=== PATIENT | female | born 1970 | race Caucasian/White ===

== ENCOUNTER → 2017-03-11 | Outpatient (CLI) | payer MEDICARE, OTHER ==
[~2017-03-11] MED LIST: IOHEXOL 300 MG/ML 75 ML VIAL. IV ONE
--- NOTE | 2017-03-11 11:11 | RAD ---
CTA of the chest with contrast (pulmonary embolism protocol) 03/11/2017 Clinical History: Shortness of breath. COPD.. Technique: After the intravenous administration of 75 mL of Isovue-370, contiguous, 0.625 mm axial sections were obtained through the chest. 2 mm reconstructed axial and 3-D MIP coronal and sagittal reconstructed images were obtained. One or more of the following individualized dose reduction techniques were utilized for this study: 1. Automated exposure control. 2. Adjustment of the mA and/or kV according to patient size. 3. Use of iterative reconstruction technique. Findings: Comparison study is dated 04/08/2016. No filling defects are seen within the major branches of either pulmonary artery. The heart and thoracic aorta are within normal limits. Areas of scarring are seen involving the apices of both lungs. Mild emphysematous changes are seen bilaterally. A 1.2 cm partially calcified granuloma is seen involving the left lower lobe, unchanged. No area of consolidation is seen. No pneumothorax or pleural effusion is noted. Impression: There is no CT evidence of pulmonary embolism.
== END | disposition home or self-care (01) ==
LOC: CT 09:45
PROVIDERS: ATTEND Nurse Practitioner Adult Health
DX: J44.0 Chronic obstructive pulmonary disease with (acute) lower respiratory infection (principal); R06.02 Shortness of breath
CPT/HCPCS: 71275; Q9967

== ENCOUNTER 2017-03-14 16:10 | Inpatient (IN) | payer MEDICARE, OTHER ==
[~2017-03-14] VITALS: Ht 165.1 cm; Wt 56.7 kg
--- NOTE | 2017-03-14 17:09 | PHYS DOC ---
Past History Past Medical History: COPD Additional Past Medical Histor: Crohns Smoking: Cigarettes Adult General Chief Complaint Chief Complaint: SHORTNESS OF BREATH [facility] HPI Patient is a 47 year old F who presents with shortness of breath. She states that just prior to arrival she had a sudden onset of shortness of breath. Over the past 2 weeks she has had worsening shortness of breath. During this time she has had 2 rounds of antibiotics and is currently on her second round. She does use breathing treatments. She arrived by EMS after having received 3 breathing treatments and one dose of Solu-Medrol 125 mg IV. She feels that her shortness of breath is worse with activity and improves with rest. she is not having other symptoms with her shortness of breath Review of Systems Review of Systems Constitutional: Denies fever or chills [] Eyes: Denies change in visual acuity, redness, or eye pain [] HENT: Denies nasal congestion or sore throat [] Respiratory: Negative except history of present illness Cardiovascular: No additional information not addressed in HPI [] GI: Denies abdominal pain, nausea, vomiting, bloody stools or diarrhea [] : Denies dysuria or hematuria [] Musculoskeletal: Denies back pain or joint pain [] Integument: Denies rash or skin lesions [] Neurologic: Denies headache, focal weakness or sensory changes [] Endocrine: Denies polyuria or polydipsia [] Family History Family History Noncontributory Allergies Allergies Allergies Coded Allergies Type Severity Reaction Last Updated Verified Penicillins Allergy Intermediate 04/08/16 Yes Sulfa (Sulfonamide Antibiotics) Allergy Intermediate 04/08/16 Yes Physical Exam Physical Exam Constitutional: Well developed, well nourished, no acute distress, non-toxic appearance. [] HENT: Normocephalic, atraumatic, bilateral external ears normal, oropharynx moist, no oral exudates, nose normal. [] Eyes: PERRLA, EOMI, conjunctiva normal, no discharge. [] Neck: Normal range of motion, no tenderness, supple, no stridor. [] Cardiovascular:Heart rate regular rhythm, no murmur [] Lungs & Thorax: Bilateral breath sounds clear to auscultation [] diminished breath sounds Abdomen: Bowel sounds normal, soft, no tenderness, no masses, no pulsatile masses. [] Skin: Warm, dry, no erythema, no rash. [] Back: No tenderness, no CVA tenderness. [] Extremities: No tenderness, no cyanosis, no clubbing, ROM intact, no edema. [] Neurologic: Alert and oriented X 3, normal motor function, normal sensory function, no focal deficits noted. [] Psychologic: Affect normal, judgement normal, mood normal. [] Current Patient Data Vital Signs Hypoxia is noted Lab Results Reviewed EKG EKG [] Radiology/Procedures Radiology/Procedures Chest x-ray showed no acute disease. Consistent with emphysema Course & Med Decision Making Course & Med Decision Making Pertinent Labs and Imaging studies reviewed. (See chart for details) [] Dragon Disclaimer Dragon Disclaimer This chart was dictated in whole or in part using Voice Recognition software in a busy, high-work load, and often noisy Emergency Department environment. It may contain unintended and wholly unrecognized errors or omissions. Departure Departure: Impression: Primary Impression: COPD with exacerbation Disposition: ADMITTED INPATIENT Condition: STABLE Referrals: VENITA STEVE MD (PCP) VENIAT CASTILLO MD Mar 14, 2017 17:08
[2017-03-14 17:44] LABS: BASO # 0.1 x10^3/uL (0.0-0.2); BASO % 0 % (0-3); EOS # 0.6 x10^3/uL (0.0-0.7); EOS % 4 % (0-3); HEMATOCRIT 48.5 % (36.0-47.0); HEMOGLOBIN 16.3 g/dL (12.0-15.5); LYMPH # 3.2 x10^3/uL (1.0-4.8); LYMPH % 24 % (24-48); MEAN CORPUSCULAR HEMOGLOBIN 32 pg (25-35); MEAN CORPUSCULAR HGB CONC 34 g/dL (31-37); MEAN CORPUSCULAR VOLUME 94 fL (79-100); MONO # 0.9 x10^3/uL (0.0-1.1); MONO % 7 % (0-9); NEUT # 8.4 x10^3uL (1.8-7.7); NEUT % 64 % (31-73); PLATELET COUNT 331 x10^3/uL (140-400); RED BLOOD COUNT 5.16 x10^6/uL (3.50-5.40); WHITE BLOOD COUNT 13.2 x10^3/uL (4.0-11.0)
[2017-03-14 17:44] LABS: BGAS PH 7.42 (7.35-7.45)
[2017-03-14 17:46] LABS: CALCIUM 9.4 mg/dL (8.5-10.1); GFR 59.4; POTASSIUM 3.9 mmol/L (3.5-5.1)
[2017-03-14 19:30] VITALS: BP 114/77
[2017-03-14] MEDS ORDERED: CLIN300C8 PO (20:08)
[2017-03-14] MEDS ORDERED: VITA1TAB3 PO (20:08)
[2017-03-14] MEDS ORDERED: MULT-208 PO (20:08)
[2017-03-14] MEDS ORDERED: ALBU2.5V5 NEB (20:08)
[2017-03-14] MEDS ORDERED: MESA500C PO (20:08)
[2017-03-14] MEDS ORDERED: TRAM50TA PO (20:08)
[2017-03-14] MEDS ORDERED: ALBUTEROL SULFATE 2.5 MG/3 ML NEBU. NEB PRN (20:15)
[2017-03-14] MEDS: traMADol 50 MG TABLET PO SCH (20:48)
[2017-03-14] MEDS: methylPREDNISolone SOD SUCC PF 40 MG/ML VIAL. IV SCH (20:48)
[2017-03-14] MEDS: IV NORMAL SALINE 1,000ML 1,000 ML IV SCH (20:49)
[2017-03-14] MEDS: IPRATRPIUM/ALBUTEROL 0.5/2.5MG 3 ML NEBU. NEB SCH (20:59)
[2017-03-14 23:12] VITALS: BP 112/74
[2017-03-15] MEDS ORDERED: INFL100V IV (00:12)
[2017-03-15 04:43] VITALS: BP 122/75
[2017-03-15] MEDS: IV NORMAL SALINE 1,000ML 1,000 ML IV SCH ×2 (05:46→15:58)
[2017-03-15] MEDS: IPRATRPIUM/ALBUTEROL 0.5/2.5MG 3 ML NEBU. NEB SCH ×4 (05:49→21:06)
[2017-03-15 06:01] VITALS: BP 115/71
[2017-03-15 06:54] LABS: BASO # 0.1 x10^3/uL (0.0-0.2); BASO % 1 % (0-3); EOS % 0 % (0-3); HEMATOCRIT 45.7 % (36.0-47.0); HEMOGLOBIN 15.3 g/dL (12.0-15.5); LYMPH # 1.2 x10^3/uL (1.0-4.8); LYMPH % 9 % (24-48); MEAN CORPUSCULAR HEMOGLOBIN 31 pg (25-35); MEAN CORPUSCULAR HGB CONC 34 g/dL (31-37); MEAN CORPUSCULAR VOLUME 94 fL (79-100); MONO # 0.2 x10^3/uL (0.0-1.1); MONO % 2 % (0-9); NEUT # 11.5 x10^3uL (1.8-7.7); NEUT % 89 % (31-73); PLATELET COUNT 294 x10^3/uL (140-400); RED BLOOD COUNT 4.89 x10^6/uL (3.50-5.40); RED CELL DISTRIBUTION WIDTH 12.5 % (11.5-14.5)
[2017-03-15 06:57] LABS: CALCIUM 8.7 mg/dL (8.5-10.1); CREATININE 0.9 mg/dL (0.6-1.0); GFR 67.1; POTASSIUM 4.3 mmol/L (3.5-5.1)
[2017-03-15] MEDS: MESALAMINE ER 250 MG CAPSULE.ER PO SCH ×3 (08:08→16:48)
[2017-03-15] MEDS: methylPREDNISolone SOD SUCC PF 40 MG/ML VIAL. IV SCH ×2 (09:14→20:44)
[2017-03-15] MEDS: MULTIVITAMIN with MINERAL TABLET. PO SCH (09:14)
[2017-03-15] MEDS: VITAMIN B COMPLEX CAPSULE. PO SCH (09:14)
[2017-03-15] MEDS: AZITHROMYCIN 250 MG TABLET. PO SCH (09:15)
[2017-03-15] MEDS: traMADol 50 MG TABLET PO SCH ×2 (09:15→20:45)
--- NOTE | 2017-03-15 09:48 | RAD ---
PA and lateral chest radiographs March 14, 2017 Clinical history: Shortness of breath for 2 days. PA and lateral digital radiographs of the chest were obtained. Comparison is made to a CT scan of the chest dated 04/08/2016. The cardiac silhouette is normal in size. The thoracic aorta is minimally tortuous. A small partially calcified granuloma is seen involving the left lower lobe, unchanged. No acute pulmonary infiltrate is seen. No pleural effusion or pneumothorax is noted. Emphysematous changes are again seen involving both lungs. Mild degenerative changes are seen involving the thoracic spine. Impression: 1. Emphysematous changes. 2. No acute pulmonary infiltrate is seen.
[2017-03-15 11:49] VITALS: BP 111/71
--- NOTE | 2017-03-15 13:33 | HP ---
ADMIT DATE: 03/15/2017 HISTORY OF PRESENT ILLNESS: A 47-year-old female came in through the Emergency Room with increased shortness of breath, has a history of Crohn's disease and is on Remicade for such but apparently had increased shortness of breath. She recently had a CTA that was negative for pulmonary embolus. The patient has been taking breathing treatments; however, she continued to deteriorate. She required 3 breathing treatments and a dose of Solu-Medrol in the EMS before she felt like her breathing was least restored. She does live in a house that apparently has been recently remodeled and may have a lot of mold in it and at any case, the patient was in extreme severe respiratory distress and was admitted for such. PAST MEDICAL HISTORY: That of COPD; Crohn's disease, on Remicade; three bowel surgeries and one reattachment; and anxiety. SOCIAL HISTORY: Quit smoking 2 months ago. Denies alcohol or drug use. FAMILY HISTORY: Fibromyalgia and osteoporosis. ALLERGIES: PENICILLIN AND SULPHUR. MEDICATIONS: Albuterol, clindamycin, Remicade 100 mg IV I believe weekly or monthly, Pentasa 500 mg t.i.d., tramadol 50 mg b.i.d., vitamin B complex. REVIEW OF SYSTEMS: Positive for increased shortness of breath, no chest pain per se but really short of breath. The patient denies any fever, chills, headaches, visual changes. Does have diffuse abdominal discomfort. Overall, we will continue to monitor on that otherwise. PHYSICAL EXAMINATION: GENERAL: This is a pleasant white female, in moderate amount of distress with shortness of breath. VITAL SIGNS: The patient's blood pressure approximated 100/60, respiratory rate 20, pulse 86, afebrile. The patient's oxygen saturation was down to 91% on 3 liters. HEENT: The patient's head was atraumatic, normocephalic. Eyes: PERRLA without jaundice. The mouth and throat were normal. NECK: Supple without JVD, carotid bruits. No thyromegaly. LUNGS: Diminished throughout, poor movement of air throughout. CARDIOVASCULAR: Regular sinus rhythm. S1 and S2 without murmur, rub, thrill, or extra heart sounds. ABDOMEN: Soft, nontender, no rebound or guarding, positive bowel sounds. EXTREMITIES: No clubbing, cyanosis or edema. NEUROLOGIC: The patient was alert and oriented x 3. LABORATORY DATA: The patient's chest x-ray was unremarkable. IMPRESSION AND PLAN: In any case, the patient to continue with IV Solu-Medrol; oral antibiotics; aggressive pulmonary toilet. Continue to monitor her accordingly. Apparently, she says she does feel a little better today as compared to when she was brought in by EMS. VENITA STEVE MD DR: CHARLIE/marylin JOB#: [id number] / [id number]
[2017-03-15 15:27] VITALS: BP 103/66
[2017-03-15 20:09] VITALS: BP 129/76
[2017-03-15 23:03] VITALS: BP 110/73
--- NOTE | 2017-03-16 05:34 | ACF ---
Admit Criteria Forms Admit Criteria Forms Admit Criteria Forms COPD Clinical Indications for Admission to Inpatient Care (Arab/check or initial the applicable condition/criteria) Admission is indicated for ANY ONE of the following (1)(2)(3): [X]I. Acute exacerbation by high-risk comorbidity(e.g., pneumonia, dysrhythmia, heart failure, pleural effusion, pneumothorax) or severe underlying COPD (eg, baseline FEV1 less than 50% predicted) [ ]II. Inpatient admission required[A] rather than observation care (see Chronic Obstructive Pulmonary Disease: Observation Care) because of ANY ONE of the following: [ ]a) New or pre-existing signs or symptoms of COPD (eg, dyspnea or Tachypnea at rest or with minimal activity) that persist despite outpatient and observation care treatment [ ]b) New-onset hypoxemia (room air SaO2 less than 90%, PO2 less than 60 mm Hg (8.0 kPa)) that persists despite outpatient and observation care treatment [ ]c) Worsening of pre-existing hypoxemia (eg, new or increased requirement for supplemental oxygen to maintain oxygenation at baseline level) that persists despite outpatient and observation care treatment, with oxygen treatment needs performable only in acute inpatient setting [ ]d) Hypercarbia (PCO2 greater than 40 mm Hg (5.3 kPa))-induced respiratory acidosis (pH less than 7.35) that persists despite outpatient and observation care treatment [ ]e) Supplemental oxygen or respiratory treatments for over 24 hours that are performable only in acute inpatient setting [ ]f) Chest tube placement with active evacuation (e.g., suction, drainage) (6) [ ]g) Other condition, treatment or monitoring requiring inpatient admission [ ]III. Planned invasive surgical or diagnostic procedures requiring acute- care hospitalization [ ]IV. Acute respiratory failure (e.g., uncompensated hypercarbia, severe hypoxemia) [ ]V. Severe comorbid condition (e.g., severe steroid myopathy, acute vertebral fracture) that has acutely worsened pulmonary function [ ]. Altered mental status that is severe or persistent Extended stay beyond goal length of stay may be needed for (29)(30)(31)(32)(33) : [ ]a ) Respiratory Failure. [ ]b) Severe or persisting hypoxemia or hypercarbia [ ]c) Severe or persistent dyspnea [ ]d) Clinically significant Comorbidities (e.g. chronic heart failure, atrial fibrillation with rapid response, pneumonia)(36) [ ]e) Malnutrition (33) The original [facility] [employer] content created by [facility] has been revised. The portions of the content which have been revised are identified through the use of italic text, and [facility] has neither reviewed nor approved the modified material. All other unmodified content is copyright [employer] [facility]. Please see references footnoted in the original [facility] [employer] edition 2014 FATMATA AYERS Mar 16, 2017 05:34
[2017-03-16] MEDS: IPRATRPIUM/ALBUTEROL 0.5/2.5MG 3 ML NEBU. NEB SCH ×4 (05:46→20:42)
[2017-03-16 05:56] VITALS: BP 118/74
[2017-03-16 06:26] LABS: BASO # 0.1 x10^3/uL (0.0-0.2); BASO % 0 % (0-3); EOS % 0 % (0-3); HEMOGLOBIN 14.5 g/dL (12.0-15.5); LYMPH # 1.6 x10^3/uL (1.0-4.8); LYMPH % 7 % (24-48); MEAN CORPUSCULAR HEMOGLOBIN 31 pg (25-35); MEAN CORPUSCULAR HGB CONC 33 g/dL (31-37); MEAN CORPUSCULAR VOLUME 94 fL (79-100); MONO # 0.8 x10^3/uL (0.0-1.1); MONO % 4 % (0-9); NEUT # 20.9 x10^3uL (1.8-7.7); NEUT % 89 % (31-73); PLATELET COUNT 319 x10^3/uL (140-400); RED CELL DISTRIBUTION WIDTH 13.1 % (11.5-14.5); WHITE BLOOD COUNT 23.3 x10^3/uL (4.0-11.0)
[2017-03-16 06:37] LABS: CALCIUM 8.6 mg/dL (8.5-10.1); CREATININE 0.9 mg/dL (0.6-1.0); GFR 67.1; POTASSIUM 4.5 mmol/L (3.5-5.1)
[2017-03-16 07:26] LABS: % BANDS 4 % (0-9); % LYMPHS 8 % (24-48); % MONOS 4 % (0-10); % SEGS 84 % (35-66)
[2017-03-16 07:28] LABS: OVALOCYTES OCC; PLT ESTIMATE ADEQUATE (ADEQUATE); TEAR DROP CELLS OCC
[2017-03-16] MEDS: methylPREDNISolone SOD SUCC PF 40 MG/ML VIAL. IV SCH ×2 (08:01→20:28)
[2017-03-16] MEDS: MESALAMINE ER 250 MG CAPSULE.ER PO SCH ×3 (08:01→17:31)
[2017-03-16] MEDS: VITAMIN B COMPLEX CAPSULE. PO SCH (08:02)
[2017-03-16] MEDS: AZITHROMYCIN 250 MG TABLET. PO SCH (08:02)
[2017-03-16] MEDS: traMADol 50 MG TABLET PO SCH ×2 (08:02→20:28)
[2017-03-16] MEDS: MULTIVITAMIN with MINERAL TABLET. PO SCH (08:02)
[2017-03-16 10:32] VITALS: BP 115/72
[2017-03-16 15:40] VITALS: BP 114/77
[2017-03-16 20:30] VITALS: BP 131/88
[2017-03-16 23:19] VITALS: BP 115/79
[2017-03-17 05:30] VITALS: BP 113/74
[2017-03-17] MEDS: IPRATRPIUM/ALBUTEROL 0.5/2.5MG 3 ML NEBU. NEB SCH ×2 (05:42→09:00)
[2017-03-17] MEDS: MULTIVITAMIN with MINERAL TABLET. PO SCH (07:54)
[2017-03-17] MEDS: MESALAMINE ER 250 MG CAPSULE.ER PO SCH ×2 (07:54→11:50)
[2017-03-17] MEDS: traMADol 50 MG TABLET PO SCH (07:54)
[2017-03-17] MEDS: AZITHROMYCIN 250 MG TABLET. PO SCH (07:54)
[2017-03-17] MEDS: VITAMIN B COMPLEX CAPSULE. PO SCH (07:54)
[2017-03-17] MEDS: methylPREDNISolone SOD SUCC PF 40 MG/ML VIAL. IV SCH (07:54)
[2017-03-17 08:26] LABS: BASO # 0.1 x10^3/uL (0.0-0.2); BASO % 1 % (0-3); EOS % 0 % (0-3); HEMATOCRIT 45.9 % (36.0-47.0); HEMOGLOBIN 15.6 g/dL (12.0-15.5); LYMPH # 3.5 x10^3/uL (1.0-4.8); LYMPH % 19 % (24-48); MEAN CORPUSCULAR HEMOGLOBIN 32 pg (25-35); MEAN CORPUSCULAR HGB CONC 34 g/dL (31-37); MEAN CORPUSCULAR VOLUME 93 fL (79-100); MONO # 1.2 x10^3/uL (0.0-1.1); MONO % 7 % (0-9); NEUT # 13.3 x10^3uL (1.8-7.7); NEUT % 74 % (31-73); PLATELET COUNT 329 x10^3/uL (140-400); RED BLOOD COUNT 4.94 x10^6/uL (3.50-5.40); RED CELL DISTRIBUTION WIDTH 12.9 % (11.5-14.5); WHITE BLOOD COUNT 18.1 x10^3/uL (4.0-11.0)
[2017-03-17 08:40] LABS: CALCIUM 9.2 mg/dL (8.5-10.1); CREATININE 0.9 mg/dL (0.6-1.0); GFR 67.1; POTASSIUM 4.8 mmol/L (3.5-5.1)
[2017-03-17] MEDS ORDERED: PRED20TA PO (10:05)
[2017-03-17] MEDS ORDERED: IPRA3AMP NEB (10:05)
[2017-03-17 10:23] VITALS: BP 114/76
[2017-03-17] MEDS ORDERED: IPRATRPIUM/ALBUTEROL 0.5/2.5MG 3 ML NEBU. NEB SCH (12:00)
--- NOTE | 2017-03-17 23:05 | PN ---
DATE: SUBJECTIVE: The patient is a 47-year-old female in with acute exacerbation of COPD, acute respiratory failure. The patient seems to be doing a little bit better today. We discussed her chest x-ray in detail, previous CT scan showing mild emphysema. The patient understands that she is making some progress. PHYSICAL EXAMINATION: VITAL SIGNS: Blood pressure 130/80, respiratory rate 20, pulse 90, and afebrile. She is on 2 liters at 93%. GENERAL: The patient is alert and oriented. LUNGS: Diminished, but clear some mild expiratory wheezes. LABORATORY DATA: White count has shot up to 23,000, probably secondary to the prednisone, otherwise unremarkable. The patient's blood chemistries were basically unremarkable and the patient's blood gases were showing initially marked hypoxia. ASSESSMENT AND PLAN: In any case acute respiratory failure with hypoxia, acute exacerbation of COPD, emphysema, and history of Crohn's disease. PLAN: Continue to monitor the patient accordingly. Taper down on her Solu-Medrol and hopefully ready for discharge in the a.m. VENITA STEVE MD DR: CHARLIE/marylin JOB#: [id number] / [id number]
[2017-03-18] MEDS ORDERED: predniSONE 20 MG TABLET PO SCH (09:00)
== END 2017-03-17 13:30 | disposition home health service (06) | DRG 189 ==
LOC: ER 16:10 → 1 SOUTH 17:50
PROVIDERS: ADMIT Family Medicine; ATTEND Family Medicine
DX: J96.01 Acute respiratory failure with hypoxia (principal); J44.1 Chronic obstructive pulmonary disease with (acute) exacerbation; K50.90 Crohn's disease, unspecified, without complications; F41.9 Anxiety disorder, unspecified; Z82.62 Family history of osteoporosis; Z87.891 Personal history of nicotine dependence; Z88.0 Allergy status to penicillin; Z88.2 Allergy status to sulfonamides
CPT/HCPCS: 36415; 36600; 71020; 80048; 82803; 85007; 85025; 94250; 94640; 94760; J0456; J2920; J7620; 99285-25; J7030

== ENCOUNTER → 2018-10-04 | Outpatient (CLI) | payer MEDICARE ==
[~2018-10-04] MED LIST changes: +ALBU2.5V5 NEB; +CLIN300C8 PO; +INFL100V IV; +IOHEXOL 240 MG/ML 50ML VIAL. ONE; -IOHEXOL 300 MG/ML 75 ML VIAL. IV ONE; +IPRA3AMP29 NEB; +MESA500C PO; +MULT-208 PO; +PRED20TA PO; +PRED50TA PO; +TRAM50TA PO; +VITA1TAB3 PO
[2018-10-04] MEDS: IOHEXOL 300 MG/ML 75 ML VIAL. IV ONE (11:44)
[2018-10-04] MEDS: IOHEXOL 240 MG/ML 50ML VIAL. PO ONE (11:45)
--- NOTE | 2018-10-04 13:00 | RAD ---
EXAM: CT Abdomen and Pelvis with IV contrast CLINICAL HISTORY: Crohn's HX, Hernia repair, tenderness at umbilicus, small bowel resection X 3. OMNI 300 75ml,OMNI 240 30ml in [place] COMPARISON: CT chest 04/08/2016 03/11/2017 TECHNIQUE: Helical CT of the abdomen and pelvis was performed following the administration of intravenous contrast. Axial, coronal and sagittal reformatted images were generated. PQRS compliance statement - One or more of the following individualized dose reduction techniques were utilized for this study: 1. Automated exposure control 2. Adjustment of the mA and/or kV according to patient size 3. Use of iterative reconstruction technique FINDINGS: Lower chest: A few 4 mm groundglass nodules are seen in the right middle lobe (series 2 image 6, 7, 8), grossly stable to prior CT 03/11/2017. Abdomen and Pelvis: No focal liver lesion. Liver is mildly enlarged. Diffuse hepatic hypoattenuation Calcified granuloma are seen within the liver. High density material dependently within the gallbladder likely sludge or small stones. No biliary ductal dilatation. Calcified granuloma are seen within the spleen. Adrenal glands and pancreas are unremarkable. Symmetric nephrograms. No focal renal lesion. No hydronephrosis. Appendix is normal. Anastomotic suture lines are seen within the small bowel consistent with prior small bowel resection. There is a focal loop of small bowel dilation measuring up to 5.1 cm in diameter. No definite fat infiltration is seen about the small or large bowel to suggest associated inflammatory process. Scattered enlarged mesenteric lymph nodes are seen, a sales representative business courses left lower quadrant lymph node measures 1.9 x 1.3 cm. No abdominal or pelvic ascites. No abdominal pelvic lymphadenopathy. Bones: Diffusely decreased bone mineral density. No definite aggressive osseous lesion is identified. Degenerative changes of the spine are seen. IMPRESSION: 1. Single mildly dilated loop of small bowel is seen within the left lower quadrant, in general with chronic morphology no definite associated inflammatory changes or wall thickening are seen to suggest acute inflammatory process. Otherwise the small and large bowel are normal in caliber. 2. Mild hepatomegaly and hepatic steatosis. 3. Enlarged mesenteric lymph nodes are seen, likely from known inflammatory bowel disease. Electronically signed by: Derw Hightower MD (10/04/2018 12:57 PM) [facility]
== END | disposition home or self-care (01) ==
LOC: CT 10:26
PROVIDERS: ATTEND Internal Medicine Gastroenterology
DX: K76.0 Fatty (change of) liver, not elsewhere classified (principal); M47.899 Other spondylosis, site unspecified; K76.89 Other specified diseases of liver; R91.8 Other nonspecific abnormal finding of lung field; R16.0 Hepatomegaly, not elsewhere classified; R59.0 Localized enlarged lymph nodes
CPT/HCPCS: 74177; Q9966; Q9967

== ENCOUNTER 2018-12-13 12:55 | Emergency (ER) | payer MEDICARE ==
[~2018-12-13] VITALS: Ht 165.1 cm; Wt 49.9 kg
[~2018-12-13 12:55] MED LIST changes: -IOHEXOL 240 MG/ML 50ML VIAL. ONE; -PRED50TA PO
--- NOTE | 2018-12-13 13:17 | PHYS DOC ---
Past History Past Medical History: COPD Additional Past Medical Histor: Crohns Past Surgical History: No Surgical History Smoking: Cigarettes, Quit Less Than 1 Year Alcohol Use: None Drug Use: None Adult General Chief Complaint Chief Complaint: SHORTNESS OF BREATH HPI HPI Patient is a 48-year-old female presents with shortness of breath. It started this morning. Patient has a history of COPD and is on home oxygen therapy. She had to turn up her oxygen level from her usual 2 now up to 4 L/m. Denies any chest pain or palpitations. Denies any swelling in her legs feet or ankles. No significant relief with her home medicines. Her last dose of steroids was in April 2018 in in conjunction with Remicade for her Crohn's disease. She has not had any recent steroids for breathing issues. She is a former smoker, still using nicotine gum. Oxygen supplementation makes the shortness of breath better. Nothing really seems to make it worse. Notes an increased cough today.[] Review of Systems Review of Systems Constitutional: Denies fever or chills [] Eyes: Denies change in visual acuity, redness, or eye pain [] HENT: Denies nasal congestion or sore throat [] Respiratory: See history of present illness[] Cardiovascular: No chest pain or palpitations[] GI: Denies abdominal pain, nausea, vomiting, bloody stools or diarrhea [] : Denies dysuria or hematuria [] Musculoskeletal: Denies back pain or joint pain [] Integument: Denies rash or skin lesions [] Neurologic: Denies headache, focal weakness or sensory changes [] Endocrine: Denies polyuria or polydipsia [] All other systems were reviewed and found to be within normal limits, except as documented in this note. Allergies Allergies Allergies Coded Allergies Type Severity Reaction Last Updated Verified Penicillins Allergy Intermediate 04/08/16 Yes Sulfa (Sulfonamide Antibiotics) Allergy Intermediate 04/08/16 Yes Physical Exam Physical Exam Constitutional: Well developed, well nourished, no acute distress, non-toxic appearance. [] HENT: Normocephalic, atraumatic, bilateral external ears normal, oropharynx moist, no oral exudates, nose normal. [] Eyes: PERRLA, EOMI, conjunctiva normal, no discharge. [] Neck: Normal range of motion, no tenderness, supple, no stridor. [] Cardiovascular:Heart rate regular rhythm, no murmur [] Lungs & Thorax: Bilateral breath sounds scattered expiratory wheezes, speaks full sentences[] Abdomen: Bowel sounds normal, soft, no tenderness, no masses, no pulsatile masses. [] Skin: Warm, dry, no erythema, no rash. [] Back: No tenderness, no CVA tenderness. [] Extremities: No tenderness, no cyanosis, no clubbing, ROM intact, no edema. [] Neurologic: Alert and oriented X 3, normal motor function, normal sensory function, no focal deficits noted. [] Psychologic: Affect normal, judgement normal, mood normal. [] EKG EKG [] Radiology/Procedures Radiology/Procedures PROCEDURE: CHEST PA & LATERAL Chest, PA and Lateral: Technique: PA and lateral views of the chest were obtained. History: Cough, shortness of breath. Comparison: 03/14/2017. Findings: The heart size grossly appears unremarkable. There is mild prominent appearing bilateral interstitial lung markings likely chronic interstitial changes. There is blunting of the right costophrenic angle similar to prior exam could be a small right pleural effusion or pleural scarring similar to prior exam. IMPRESSION: 1. Mild prominent appearing bilateral interstitial lung markings likely chronic interstitial changes similar to prior exam.[] Course & Med Decision Making Course & Med Decision Making Pertinent Labs and Imaging studies reviewed. (See chart for details) ED course: Patient arrived, was placed in bed, and tolerated exam well. She received breathing treatment was feeling significant only better after the DuoNeb. Was transported to and from x-ray with any complications. After return of the imaging findings, these were discussed with the patient voiced understanding. All questions were answered. Patient was discharged in improved condition. Medical decision making: This appears to be an acute exacerbation of chronic obstructive pulmonary disease. There is no evidence of pneumonia. No evidence of persistent hypoxia. No evidence of this being an acute coronary syndrome, CHF, or pneumothorax.[] Dragon Disclaimer Dragon Disclaimer This electronic medical record was generated, in whole or in part, using a voice recognition dictation system. Departure Departure: Impression: Primary Impression: Acute exacerbation of chronic obstructive pulmonary disease (COPD) Disposition: HOME, SELF-CARE Condition: IMPROVED Referrals: VENITA STEVE MD (PCP) Follow-up in 2 days Patient Instructions: Chronic Obstructive Pulmonary Disease Exacerbation Additional Instructions: Follow-up with your regular doctor in 2 days. Return to the ER if worsening d ifficulty breathing or any other concerns. Scripts Prednisone (PREDNISONE) 50 Mg Tablet 1 TAB PO DAILY for INFLAMMATION, #5 TAB Prov: STACEY FRANCO DO 12/13/18 STACEY FRANCO DO December 13, 2018 13:17
--- NOTE | 2018-12-13 13:25 | RAD ---
Chest, PA and Lateral: Technique: PA and lateral views of the chest were obtained. History: Cough, shortness of breath. Comparison: 03/14/2017. Findings: The heart size grossly appears unremarkable. There is mild prominent appearing bilateral interstitial lung markings likely chronic interstitial changes. There is blunting of the right costophrenic angle similar to prior exam could be a small right pleural effusion or pleural scarring similar to prior exam. IMPRESSION: 1. Mild prominent appearing bilateral interstitial lung markings likely chronic interstitial changes similar to prior exam. Electronically signed by: Huey Richardson MD (12/13/2018 1:22 PM) [place] [id number]
[2018-12-13] MEDS ORDERED: predniSONE 10 MG TABLET PO ONE (13:40)
[2018-12-13] MEDS ORDERED: IPRATRPIUM/ALBUTEROL 0.5/2.5MG 3 ML NEBU. NEB ONE (13:40)
[2018-12-13] MEDS ORDERED: PRED50TA PO (13:47)
[2018-12-13 13:54] VITALS: BP 131/80
== END 2018-12-13 13:50 | disposition home or self-care (01) ==
LOC: ER 12:55
DX: J44.1 Chronic obstructive pulmonary disease with (acute) exacerbation (principal); K50.90 Crohn's disease, unspecified, without complications; Z87.891 Personal history of nicotine dependence; Z99.81 Dependence on supplemental oxygen; Z88.0 Allergy status to penicillin; Z88.2 Allergy status to sulfonamides
CPT/HCPCS: 71046; 94640; 99284; J7512; J7620